=== PATIENT | female | born 1975 | race Caucasian/White ===

== ENCOUNTER 2017-04-19 20:22 | Emergency (ER) | payer OTHER ==
[2017-04-19 20:35] VITALS: BP 98/55; PULSE 65; TEMP 98.3; BMI 33.8
[2017-04-19] MEDS ORDERED: LORATADINE 10 MG TABLET PO ONE (22:43)
[2017-04-19] MEDS ORDERED: LORATADINE 10 MG TABLET ONE (22:44)
--- NOTE | 2017-04-19 22:59 | PDOC ---
History of Present Illness - General Chief Complaint: Ear Problem Stated Complaint: EAR INFECTION Time Seen by Provider: 04/19/17 22:10 Past History - Past Medical History Allergies/Adverse Reactions: Allergies Allergy/AdvReac Type Severity Reaction Status Date / Time acetaminophen [From Percocet] Allergy Hives Verified 04/19/17 20:34 oxycodone HCl [From Percocet] Allergy Hives Verified 04/19/17 20:34 tetracycline Allergy Hives Verified 04/19/17 20:34 SEAFOOD Allergy Rash Uncoded 04/19/17 20:34 Home Medications: Ambulatory Orders NK [No Known Home Medication] 04/19/17 Asthma: Yes Psychiatric Problems: Yes (ANXIETY) - Surgical History Cholecystectomy: No (GALLSTONES) - Psycho/Social/Smoking Cessation Hx Anxiety: Yes Suicidal Ideation: No Smoking History: Never smoked Have you smoked in the past 12 months: No Number of Cigarettes Smoked Daily: 2 Information on smoking cessation initiated: No Hx Alcohol Use: No Drug/Substance Use Hx: No Substance Use Type: None *Physical Exam - Vital Signs Last Vital Signs Temp Pulse Resp BP Pulse Ox 98.3 F 65 17 98/55 100 04/19/17 20:32 04/19/17 20:32 04/19/17 20:32 04/19/17 20:32 04/19/17 20:32 ED Treatment Course - Medications Given in the ED: ED Medications Discontinued Medications Generic Name Dose Route Start Last Admin Trade Name Juwan PRN Reason Stop Dose Admin Loratadine 10 mg 04/19/17 22:43 04/19/17 22:45 Claritin - PO 04/19/17 22:44 10 mg ONCE ONE Administration *DC/Admit/Observation/Transfer Diagnosis at time of Disposition: Otalgia of both ears - Discharge Dispostion Disposition: HOME Condition at time of disposition: Good Admit: No - Referrals Referrals: Buddy Alfaro MD [Staff Physician] - - Patient Instructions Printed Discharge Instructions: DI for Ear Pain-Adult Additional Instructions: You have ear pain, most likely due to seasonal allergies. Take Motrin as needed for pain. Take Claritin once daily to help with allergy symptoms. You were prescribed fluticisone nasal spray. Use two sprays in each nostril 2 times a day to help with the pain. Follow up with you primary care doctor. If your symptoms do not get better, follow up with ENT, Dr. Alfaro. Return to the ED if you have worsening pain, fevers, chills, lightheadedness, vertigo, or any changes in your symptoms - Post Discharge Activity Work/School Note: Back to Work
== END 2017-04-19 23:13 | disposition home or self-care (01) ==
LOC: JERFT 20:22 → SUPCPDRO 20:22 → JERFT 23:13
DX: H92.03 Otalgia, bilateral (principal); J45.909 Unspecified asthma, uncomplicated; F41.9 Anxiety disorder, unspecified
CPT/HCPCS: 99281-25

== ENCOUNTER 2017-07-02 15:23 | Emergency (ER) | payer OTHER ==
[2017-07-02 15:27] VITALS: BP 136/55; PULSE 95; TEMP 98.2; BMI 31.8
[2017-07-02] MEDS ORDERED: ALBUTEROL SO4 2.5/IPRATROPIUM 0.5 INH SOL 3 ML VIAL.NEB. NEB ONE ×4 (15:27→16:59)
--- NOTE | 2017-07-02 15:27 | PDOC ---
Rapid Medical Evaluation Time Seen by Provider: 07/02/17 15:24 Medical Evaluation: Allergies Allergy/AdvReac Type Severity Reaction Status Date / Time acetaminophen [From Percocet] Allergy Hives Verified 06/14/17 09:17 oxycodone HCl [From Percocet] Allergy Hives Verified 06/14/17 09:17 tetracycline Allergy Hives Verified 06/14/17 09:17 SEAFOOD Allergy Rash Uncoded 06/14/17 09:17 07/02/17 15:24 I have performed a brief in person evaluation of this patient. The patient presents with chief complaint of : cough short of breath ran out of inhaler , has URI symptoms, no intubations Pertinent PE findings: diminshed lung sounds bilaterally, exp wheeze noted, pt able to speak full sentences I have ordered the following: deena The patient will proceed to the ER for further evaluation.
--- NOTE | 2017-07-02 16:59 | PDOC ---
History of Present Illness - General Chief Complaint: Asthma Stated Complaint: SOB (ASTHMA) Time Seen by Provider: 07/02/17 15:24 History Source: Patient Exam Limitations: No Limitations - History of Present Illness Initial Comments: 07/02/17 16:41 Pt. is a 41 y/o female with PMH of asthma who presents to the ED stating that she feels short of breath and that she needs a refill of her albuterol inhaler. Pt. states that she has a cold and she feels that it is making her asthma worse. She has not taken any albuterol in the past day. States she has been hospitalized for her asthma, but never intubated. Admits to rhinorrhea, congestion, cough, wheezing, SOB. Denies fevers, chills, dyspnea on exertion, difficulty breathing, chest pain, n/v/d. Pt. received one duoneb in triage. Past History - Travel Traveled outside of the country in the last 30 days: No Close contact w/someone who was outside of country & ill: No - Past Medical History Allergies/Adverse Reactions: Allergies Allergy/AdvReac Type Severity Reaction Status Date / Time acetaminophen [From Percocet] Allergy Hives Verified 07/02/17 15:27 oxycodone HCl [From Percocet] Allergy Hives Verified 07/02/17 15:27 tetracycline Allergy Hives Verified 07/02/17 15:27 SEAFOOD Allergy Rash Uncoded 07/02/17 15:27 Home Medications: Ambulatory Orders Albuterol Sulfate Inhaler - [Ventolin HFA Inhaler -] 1 - 2 inh PO Q4H #1 inhaler 07/02/17 Albuterol Sulfate Inhaler - [Ventolin Hfa Inhaler -] 1 - 2 inh PO QID PRN Asthma: Yes COPD: No GI Disorders: Yes (GALLSTONES) Psychiatric Problems: Yes (ANXIETY) - Surgical History Cholecystectomy: Yes (GALLSTONES) - Suicide/Smoking/Psychosocial Hx Smoking History: Never smoked Have you smoked in the past 12 months: No Number of Cigarettes Smoked Daily: 2 Information on smoking cessation initiated: No Hx Alcohol Use: No Drug/Substance Use Hx: No Substance Use Type: Alcohol Review of Systems - Review of Systems Able to Perform ROS?: Yes Comments:: 07/02/17 17:14 CONSTITUTIONAL: Absent: fever, chills, diaphoresis, generalized weakness, malaise, loss of appetite HEENT: Present: rhinorrhea, nasal congestion Absent: throat pain, throat swelling, difficulty swallowing, mouth swelling, ear pain, eye pain, visual Changes CARDIOVASCULAR: Absent: chest pain, loss of consciousness, palpitations, irregular heart rate, peripheral edema RESPIRATORY: Present: cough, shortness of breath, wheezing Absent: dyspnea with exertion, orthopnea, stridor, hemoptysis GASTROINTESTINAL: Absent: abdominal pain, abdominal distension, nausea, vomiting, diarrhea, constipation, melena, hematochezia GENITOURINARY: Absent: dysuria, frequency, urgency, hesitancy, hematuria, flank pain, genital pain MUSCULOSKELETAL: Absent: myalgia, arthralgia, joint swelling SKIN: Absent: rash, itching, pallor HEMATOLOGIC/IMMUNOLOGIC: Absent: easy bleeding, easy bruising, lymphadenopathy, frequent infections ENDOCRINE: Absent: unexplained weight gain, unexplained weight loss, heat intolerance, cold intolerance NEUROLOGIC: Absent: headache, focal weakness or paresthesias, dizziness, unsteady gait, seizure, mental status changes, bladder or bowel incontinence PSYCHIATRIC: Absent: anxiety, depression, suicidal or homicidal ideation, hallucinations. Is the patient limited Swedish proficient: No *Physical Exam - Vital Signs Last Vital Signs Temp Pulse Resp BP Pulse Ox 98.2 F 95 H 19 136/55 100 07/02/17 15:25 07/02/17 15:25 07/02/17 15:25 07/02/17 15:25 07/02/17 15:25 - Physical Exam Comments: 07/02/17 17:15 GENERAL: Well developed, well nourished. Awake and alert. No acute distress. HEENT: Normocephalic, atraumatic. PERRLA, EOMI. No conjunctival pallor. Sclera are non- icteric. Moist mucous membranes. Oropharynx is clear. NECK: Supple. Full ROM. No JVD. Carotid pulses 2+ and symmetric, without bruits. No thyromegaly. No lymphadenopathy. CARDIOVASCULAR: Regular rate and rhythm. No murmurs, rubs, or gallops. Distal pulses are 2+ and symmetric. PULMONARY: No evidence of respiratory distress. Lungs with scattered wheezing. Fair aeration to the bases. No rales or rhonchi. ABDOMINAL: Soft. Non-tender. Non-distended. No rebound or guarding. No organomegaly. Normoactive bowel sounds. MUSCULOSKELETAL Normal range of motion at all joints. No bony deformities or tenderness. No CVA tenderness. EXTREMITIES: No cyanosis. No clubbing. No edema. No calf tenderness. SKIN: Warm and dry. Normal capillary refill. No rashes. No jaundice. NEUROLOGICAL: Alert, awake, appropriate. Cranial nerves 2-12 intact. No deficits to light touch and temperature in face, upper extremities and lower extremities. No motor deficits in the in face, upper extremities and lower extremities. Normoreflexic in the upper and lower extremities. Normal speech. Toes are down- going bilaterally. Gait is normal without ataxia. PSYCHIATRIC: Cooperative. Good eye contact. Appropriate mood and affect. ED Treatment Course - Medications Given in the ED: ED Medications Discontinued Medications Generic Name Dose Route Start Last Admin Trade Name Freq PRN Reason Stop Dose Admin Albuterol/Ipratropium 1 amp 07/02/17 15:27 07/02/17 15:32 Duoneb - NEB 07/02/17 15:28 1 amp ONCE ONE Administration Albuterol/Ipratropium 1 amp 07/02/17 16:29 07/02/17 16:34 Duoneb - NEB 07/02/17 16:30 1 amp ONCE ONE Administration Medical Decision Making - Medical Decision Making 07/02/17 17:16 Pt. is a 41 y/o F who presents to the ED for an asthma exacerbation and albuterol inhaler refill. Lung sounds with scattered wheezing after one duoneb. Will give two more and re-evaluate. New albuterol rx sent to her pharmacy. 07/02/17 17:54 Lung sounds clear on repeat exam. Will d/c home at this time with instructions to use inhaler every 4 hours while with viral symptoms. *DC/Admit/Observation/Transfer Diagnosis at time of Disposition: Asthma exacerbation Qualifiers: Asthma severity: mild Asthma persistence: intermittent Qualified Code(s): J45.21 - Mild intermittent asthma with (acute) exacerbation URI (upper respiratory infection) Qualifiers: URI type: unspecified URI Qualified Code(s): J06.9 - Acute upper respiratory infection, unspecified - Discharge Dispostion Disposition: HOME Condition at time of disposition: Good Admit: No - Prescriptions Prescriptions: Albuterol Sulfate Inhaler - [Ventolin HFA Inhaler -] 1 - 2 inh PO Q4H #1 inhaler - Referrals - Patient Instructions Printed Discharge Instructions: DI for Asthma -- Adult Additional Instructions: You had an asthma exacerbation. You were given a new prescription for albuterol. Please take it every 4 hours while you have the upper respiratory infection. Drink plenty of fluids. Follow up with your doctor this week. Return to the ED if you have worsening shortness of breath, fevers, difficulty breathing or have any changes in your symptoms. - Post Discharge Activity
== END 2017-07-02 17:41 | disposition home or self-care (01) ==
LOC: JERFT 15:23
PROC: 3E0F7GC Introduction of Other Therapeutic Substance into Respiratory Tract, Via Natural or Artificial Opening (ICD-10-PCS; principal; 2017-07-02)
PROC: 3E0F7GC Introduction of Other Therapeutic Substance into Respiratory Tract, Via Natural or Artificial Opening (ICD-10-PCS; 2017-07-02)
PROC: 3E0F7GC Introduction of Other Therapeutic Substance into Respiratory Tract, Via Natural or Artificial Opening (ICD-10-PCS; 2017-07-02)
DX: J45.21 Mild intermittent asthma with (acute) exacerbation (principal); J06.9 Acute upper respiratory infection, unspecified
CPT/HCPCS: 94640; 99281-25

== ENCOUNTER 2018-08-19 13:57 | Emergency (ER) | payer OTHER ==
[2018-08-19 14:26] VITALS: TEMP 98; BMI 26.5
--- NOTE | 2018-08-19 14:26 | PDOC ---
Rapid Medical Evaluation Chief Complaint: Nausea/Vomiting Medical Evaluation: Allergies Allergy/AdvReac Type Severity Reaction Status Date / Time acetaminophen [From Percocet] Allergy Hives Verified 03/20/18 17:46 oxycodone HCl [From Percocet] Allergy Hives Verified 03/20/18 17:46 tetracycline Allergy Hives Verified 03/20/18 17:46 SEAFOOD Allergy Rash Uncoded 03/20/18 17:46 08/19/18 14:22 I have performed a brief in-person evaluation of this patient. The patient presents with a chief complaint of:vomiting x 2 days= after binge drinking , stopped last month but smokes marijuana daily. Pertinent physical exam findings: pale, appears uncomfortable I have ordered the following: Influenza , ua, ucg The patient will proceed to the ED for further evaluation. 08/19/18 14:24 Discharge Disposition - Diagnosis Fever and chills - Referrals - Patient Instructions - Post Discharge Activity
--- NOTE | 2018-08-19 15:30 | PDOC ---
History of Present Illness - General Chief Complaint: Nausea/Vomiting Stated Complaint: Nausea/Vomiting Time Seen by Provider: 08/19/18 15:21 History Source: Patient - History of Present Illness Timing/Duration: reports: other Quality: reports: severe Past History - Past Medical History Allergies/Adverse Reactions: Allergies Allergy/AdvReac Type Severity Reaction Status Date / Time acetaminophen [From Percocet] Allergy Hives Verified 08/19/18 14:26 oxycodone HCl [From Percocet] Allergy Hives Verified 08/19/18 14:26 tetracycline Allergy Hives Verified 08/19/18 14:26 SEAFOOD Allergy Rash Uncoded 08/19/18 14:26 Home Medications: Ambulatory Orders Albuterol Sulfate Inhaler - [Ventolin HFA Inhaler -] 1 - 2 inh PO Q4H #1 inhaler 07/02/17 Ibuprofen 800 mg PO TID #30 tablet 03/20/18 Tramadol HCl [Ultram] 50 mg PO TID #20 tablet MDD 3 03/20/18 Metoclopramide HCl [Reglan] 10 mg PO Q8H #15 tablet 08/19/18 Asthma: Yes COPD: No GI Disorders: Yes (GALLSTONES) Psychiatric Problems: Yes (ANXIETY/ depression) - Surgical History Cholecystectomy: Yes (GALLSTONES) - Reproductive History (#): 2 Para: 2 Cervical CA: No Dysfunctional Uterine Bleeding: No Ectopic : No Endometrial CA: No Polycystic Ovaries: No Therapeutic (s) & number: No Tubal Ligation: No - Immunization History Immunization Up to Date: Yes - Suicide/Smoking/Psychosocial Hx Smoking History: Never smoked Have you smoked in the past 12 months: No Number of Cigarettes Smoked Daily: 2 Information on smoking cessation initiated: No Hx Alcohol Use: Yes (lot during the weekend.) Drug/Substance Use Hx: Yes (marijuana) Substance Use Type: Alcohol Review of Systems - Review of Systems Constitutional: Yes: Weakness. No: Chills, Fever ABD/GI: Yes: Nausea, Vomiting. No: Diarrhea, Abdominal cramping : No: Dysuria, Frequency, Flank Pain, Hematuria *Physical Exam - Vital Signs Last Vital Signs Temp Pulse Resp BP Pulse Ox 98.0 F 93 H 16 99/60 100 08/19/18 14:24 08/19/18 14:24 08/19/18 14:24 08/19/18 14:24 08/19/18 14:24 - Physical Exam General Appearance: Yes: Appropriately Dressed, Moderate Distress HEENT: positive: Normal Voice Neck: positive: Supple Respiratory/Chest: negative: Respiratory Distress Gastrointestinal/Abdominal: positive: Soft Musculoskeletal: negative: CVA Tenderness Integumentary: positive: Dry, Warm Neurologic: positive: Fully Oriented, Alert, Normal Mood/Affect Moderate Sedation - Procedure Monitoring Vital Signs: Procedure Monitoring Vital Signs Temperature 98.0 F 08/19/18 14:24 Pulse Rate 93 H 08/19/18 14:24 Respiratory Rate 16 08/19/18 14:24 Blood Pressure 99/60 08/19/18 14:24 O2 Sat by Pulse Oximetry (%) 100 08/19/18 14:24 ED Treatment Course - LABORATORY CBC & Chemistry Diagram: 08/19/18 15:59 08/19/18 15:59 Medical Decision Making - Medical Decision Making 08/19/18 15:28 42 yo F, possible ETOH abuse, marijuana use daily, here with intractable n/v 4 days. Unable to tolerate po. Denies abdominal pain, change in bowel movements , hematochezia, BRBPR, melena, fever or chills. No dysuria. Patient states she drinks socially but sometimes when she drinks, she drinks "too much" and binge drinks. States last time she drank was a month ago and stopped drinking because of nausea, vomiting. Reports that she has not drank since, but continues to smoke marijuana daily. see exam N/V Possible cyclical n/v 2/2 cannibus use vs gastritis vs pancreatitis given hx -IVF -zofran -labs -reassess 08/19/18 17:25 Pt reports feeling significantly better after Reglan and IV fluids and appears well at this time. Was able to tolerate po here. Will dc with appropriate instructions and reglan as needed for pain. Reasons to return discussed with patient, otherwise to follow-up with her PMD *DC/Admit/Observation/Transfer Diagnosis at time of Disposition: Nausea and vomiting Qualifiers: Vomiting type: unspecified Vomiting Intractability: intractable Qualified Code( s): R11.2 - Nausea with vomiting, unspecified - Discharge Dispostion Disposition: HOME Condition at time of disposition: Improved - Prescriptions Prescriptions: Metoclopramide HCl [Reglan] 10 mg PO Q8H #15 tablet - Referrals - Patient Instructions Printed Discharge Instructions: DI for Vomiting -- Adult Additional Instructions: The cause of your symptoms might be frequent marijuana use. Consider refraining from further use. Also limit alcohol intake Take Reglan as needed for nausea, vomiting and maintain adequate hydration. If symptoms persist, return to ED, otherwise follow-up with your PMD - Post Discharge Activity Forms/Work/School Notes: Back to Work
[2018-08-19] MEDS ORDERED: SODIUM CHLORIDE 1,000 ML IV STA (15:31)
[2018-08-19] MEDS ORDERED: METOCLOPRAMIDE HCL INJECTION 10 MG/2 ML VIAL IVPB ONE (15:31)
[2018-08-19 15:35] LABS: URINE APPEARANCE CLEAR; URINE BILIRUBIN NEGATIVE (<2.0 mg/dL); URINE COLOR LTYELLOW; URINE GLUCOSE (UA) NEGATIVE (NEGATIVE); URINE KETONE TRACE (NEGATIVE); URINE LEUK ESTERASE NEGATIVE (NEGATIVE); URINE NITRITE NEGATIVE (NEGATIVE); URINE PROTEIN NEGATIVE (NEGATIVE); URINE UROBILINOGEN NEGATIVE mg/dL (0.2-1.0)
[2018-08-19] MEDS ORDERED: ONDANSETRON 4 MG/2 ML VIAL IVPUSH ONE (15:39)
[2018-08-19] MEDS ORDERED: ONDANSETRON 4 MG/2 ML VIAL ONE (16:03)
[2018-08-19] MEDS ORDERED: METOCLOPRAMIDE HCL INJECTION 10 MG/2 ML VIAL ONE (16:12)
[2018-08-19 16:42] LABS: BASO % 1.1 % (0-2.0); HEMATOCRIT 41.8 % (32.4-45.2); HEMOGLOBIN 14.4 GM/dL (10.7-15.3); LYMPH % 26.8 % (8-40); MCHC 34.4 g/dl (32.0-36.0); MEAN CELL VOLUME 84.4 fl (80-96); MEAN PLT VOLUME 8.4 fl (7.5-11.1); MONO % 4.1 % (3.8-10.2); PLATELET COUNT 437 K/MM3 (134-434); RBC 4.96 M/mm3 (3.60-5.2); RDW 13.4 % (11.6-15.6); WHITE BLOOD COUNT 12.1 K/mm3 (4.0-10.0)
[2018-08-19 16:56] LABS: ALBUMIN 3.9 g/dl (3.4-5.0); ALK PHOS 77 U/L (45-117); ANION GAP 10 MMOL/L (8-16); BILIRUBIN,TOTAL 0.6 mg/dL (0.2-1); BLOOD UREA NITROGEN 10 mg/dL (7-18); CALCIUM 9.6 mg/dL (8.5-10.1); CHLORIDE 102 mmol/L (98-107); CO2 21 mmol/L (21-32); CREATININE 0.7 mg/dL (0.55-1.3); GLUCOSE,RANDOM 87 mg/dL (74-106); LIPASE 112 U/L (73-393); POTASSIUM 3.9 mmol/L (3.5-5.1); SGOT/AST 10 U/L (15-37); SGPT/ALT 19 U/L (13-61); SODIUM 133 mmol/L (136-145)
[2018-08-19 18:12] VITALS: BP 97/49; PULSE 75
[2018-08-20 02:56] LABS: COCAINE, UR NEGATIVE ng/ml (CUTOFF=300); METHADONE, UR NEGATIVE ng/ml (CUTOFF=300); OPIATES, URI NEGATIVE ng/ml (CUTOFF=300); PHENCYCLIDINE,URINE NEGATIVE ng/ml (CUTOFF=25); URINE AMPHETAMINES NEGATIVE ng/ml (CUTOFF=500); URINE BARBITURATES NEGATIVE ng/ml (CUTOFF=200); URINE BENZODIAZEPINES NEGATIVE ng/ml (CUTOFF=200)
== END 2018-08-19 18:11 | disposition home or self-care (01) ==
LOC: JER 13:57
PROC: 3E0337Z Introduction of Electrolytic and Water Balance Substance into Peripheral Vein, Percutaneous Approach (ICD-10-PCS; principal; 2018-08-19)
PROC: 3E033GC Introduction of Other Therapeutic Substance into Peripheral Vein, Percutaneous Approach (ICD-10-PCS; 2018-08-19)
PROC: 3E033GC Introduction of Other Therapeutic Substance into Peripheral Vein, Percutaneous Approach (ICD-10-PCS; 2018-08-19)
DX: R11.2 Nausea with vomiting, unspecified (principal); F10.10 Alcohol abuse, uncomplicated; F12.10 Cannabis abuse, uncomplicated
CPT/HCPCS: 36415; 80053; 80307; 81003; 83690; 84703; 85025; 87804; 96361; 96374; 96375; 99282-25; J7030

== ENCOUNTER 2019-02-10 15:48 | Emergency (ER) | payer OTHER ==
[2019-02-10 16:06] VITALS: BMI 26.5
--- NOTE | 2019-02-10 16:06 | PDOC ---
Rapid Medical Evaluation Time Seen by Provider: 02/10/19 16:03 Medical Evaluation: Allergies Allergy/AdvReac Type Severity Reaction Status Date / Time acetaminophen [From Percocet] Allergy Hives Verified 08/19/18 14:26 oxycodone HCl [From Percocet] Allergy Hives Verified 08/19/18 14:26 tetracycline Allergy Hives Verified 08/19/18 14:26 SEAFOOD Allergy Rash Uncoded 08/19/18 14:26 02/10/19 16:03 This patient had a brief in-person evaluation by me. cc: intermittent cramping +spotting, breast tenderness and nausea this week reports lmp 01/31, that was light PE: NAD unlabored breathing +bowel sounds non tender abdomen Orders: urine test, u/a This patient will proceed to Ed for further evaluation Discharge Disposition - Diagnosis Abdominal cramping - Referrals - Patient Instructions - Post Discharge Activity
[2019-02-10 17:33] LABS: PH,URINE 6.5 (5.0-8.0); URINE APPEARANCE CLEAR; URINE BILIRUBIN NEGATIVE (NEGATIVE); URINE COLOR YELLOW; URINE GLUCOSE (UA) NEGATIVE (NEGATIVE); URINE KETONE NEGATIVE (NEGATIVE); URINE LEUK ESTERASE NEGATIVE (NEGATIVE); URINE NITRITE NEGATIVE (NEGATIVE); URINE PROTEIN NEGATIVE (NEGATIVE); URINE UROBILINOGEN 0.2 mg/dL (0.2-1.0)
[2019-02-10 17:36] LABS: HCG,QUALITATIVE URINE Negative
[2019-02-10] MEDS ORDERED: ONDANSETRON 4 MG/2 ML VIAL IVPUSH ONE (18:39)
[2019-02-10] MEDS ORDERED: SODIUM CHLORIDE 0.9% 500 ML INFUS.BAG IV ONE (18:39)
--- NOTE | 2019-02-10 18:41 | PDOC ---
History of Present Illness - General Chief Complaint: Pain Stated Complaint: ABD PAIN Time Seen by Provider: 02/10/19 16:03 History Source: Patient Exam Limitations: No Limitations - History of Present Illness Initial Comments: 02/10/19 18:34 43 yo F LMP 01/31 p/w abdominal cramping (suprapubic, R>L) and vaginal spotting/bleeding since previous night. Vaginal spotting last pm and bleeding this am - has used 4 tampons. Endorses mild Nausea. Denies headache, lightheadedness, chest pain, SOB, vomiting, diarrhea, and dysuria. She believes her last pap smear was last year. h/o fibroids - states this feels different. PMH: asthma Allergy to Vancomycin and Percocet [facility] INSTALLER "across the street" Prior cholecystectomy Past History - Past Medical History Allergies/Adverse Reactions: Allergies Allergy/AdvReac Type Severity Reaction Status Date / Time acetaminophen [From Percocet] Allergy Hives Verified 02/10/19 16:06 oxycodone HCl [From Percocet] Allergy Hives Verified 02/10/19 16:06 tetracycline Allergy Hives Verified 02/10/19 16:06 vancomycin Allergy Verified 02/10/19 16:07 SEAFOOD Allergy Rash Uncoded 02/10/19 16:06 Home Medications: Ambulatory Orders Albuterol Sulfate Inhaler - [Ventolin HFA Inhaler -] 1 - 2 inh PO Q4H #1 inhaler 07/02/17 Ibuprofen 800 mg PO TID #30 tablet 03/20/18 Tramadol HCl [Ultram] 50 mg PO TID #20 tablet MDD 3 03/20/18 Metoclopramide HCl [Reglan] 10 mg PO Q8H #15 tablet 08/19/18 Asthma: Yes COPD: No GI Disorders: Yes (GALLSTONES) Psychiatric Problems: Yes (ANXIETY/ depression) - Surgical History Cholecystectomy: Yes (GALLSTONES) - Reproductive History (#): 2 Para: 2 Cervical CA: No Dysfunctional Uterine Bleeding: No Ectopic : No Endometrial CA: No Polycystic Ovaries: No Therapeutic (s) & number: No Tubal Ligation: No - Immunization History Immunization Up to Date: Yes - Suicide/Smoking/Psychosocial Hx Smoking History: Never smoked Have you smoked in the past 12 months: No Number of Cigarettes Smoked Daily: 2 Hx Alcohol Use: No Drug/Substance Use Hx: No Substance Use Type: Alcohol Review of Systems - Review of Systems Able to Perform ROS?: Yes Is the patient limited Irish proficient: No Constitutional: No: Fever, Loss of Appetite Respiratory: No: Shortness of Breath Cardiac (ROS): No: Symptoms Reported, See HPI, Chest Pain, Edema, Irregular Heart Rate, Lightheadedness, Palpitations, Syncope, Chest Tightness, Other ABD/GI: Yes: Nausea (mild), Abdominal cramping. No: Diarrhea, Vomiting, Indigestion : No: Dysuria *Physical Exam - Vital Signs Last Vital Signs Temp Pulse Resp BP Pulse Ox 98.2 F 74 18 144/85 100 02/10/19 16:04 02/10/19 16:04 02/10/19 16:04 02/10/19 16:04 02/10/19 16:04 - Physical Exam Comments: 02/10/19 18:42 GEN: SITTING IN CHAIR, NAD HEENT: NC/AT, EOMI, PERRLA CV: S1/S2, RRR, NO M/R/G LUNG: CTAB, NO WHEEZES/RALES GI: SOFT, ND. + TTP SUPRAPUBIC AND RLQ. NO GUARDING, NO REBOUND. PELVIC: speculum exam demonstrated closed cervical os without active bleeding but there was presence of blood at the cervix. No cervical motion tenderness, no adnexal tenderness. ED Treatment Course - LABORATORY CBC & Chemistry Diagram: 02/10/19 19:06 02/10/19 19:06 - ADDITIONAL ORDERS Additional order review: Laboratory Results 02/10/19 17:09 Urine Color Yellow Urine Appearance Clear Urine pH 6.5 Ur Specific [place] 1.017 Urine Protein Negative Urine Glucose (UA) Negative Urine Ketones Negative Urine Blood Negative Urine Nitrite Negative Urine Bilirubin Negative Urine Urobilinogen 0.2 Ur Leukocyte Esterase Negative Urine HCG, Qual Negative Medical Decision Making - Medical Decision Making 02/10/19 18:44 43 yo F LMP 6/28 p/w abdominal cramping and vaginal bleeding for 1 day. Exam significant for suprapubic and RLQ TTP. Urine test is negative. DDx Fibroid, abnormal uterine bleeding, ovarian cyst. Unlikely IUP, ectopic, UTI , or appendicitis Abdominal pain and vaginal bleeding - UPT neg - UA neg - CBC, CMP - Pelvic exam - transvaginal US - IV, fluids, zofran - NPO 02/10/19 20:53 - US report reviewed Dispo: home with OB f/u *DC/Admit/Observation/Transfer Diagnosis at time of Disposition: Abdominal cramping, Dysfunctional uterine bleeding - Discharge Dispostion Disposition: HOME Condition at time of disposition: Good Decision to Admit order: No - Referrals - Patient Instructions Printed Discharge Instructions: DI for Vaginal Bleeding Additional Instructions: You were examined in the Emergency Department for vaginal bleeding and abdominal pain. The ultrasound and lab work show no emergent abnormalities. Please follow up with your DUCT INSTALLER within the next 3 days. Return to the ED if you have worsening bleeding, lightheadedness, dizziness, chest pain, shortness of breath, worsening abdominal pain, or faint. - Post Discharge Activity
[2019-02-10] MEDS ORDERED: ONDANSETRON 4 MG/2 ML VIAL ONE (19:10)
[2019-02-10 20:17] LABS: BILIRUBIN,TOTAL 0.2 mg/dL (0.2-1); CALCIUM 9.1 mg/dL (8.5-10.1); CREATININE 0.7 mg/dL (0.55-1.3); POTASSIUM 4.3 mmol/L (3.5-5.1); TOT PROT 7.9 g/dl (6.4-8.2)
[2019-02-10 20:41] LABS: BASO % 0.4 % (0-2.0); EOS % 0.8 % (0-4.5); HEMOGLOBIN 13.2 GM/dL (10.7-15.3); LYMPH % 38.2 % (8-40); MCH 29.2 pg (25.7-33.7); MEAN CELL VOLUME 88.3 fl (80-96); MEAN PLT VOLUME 8.8 fl (7.5-11.1); MONO % 5.2 % (3.8-10.2); NEUT % 55.4 % (42.8-82.8); PLATELET COUNT 359 K/MM3 (134-434); RBC 4.52 M/mm3 (3.60-5.2); WHITE BLOOD COUNT 9.2 K/mm3 (4.0-10.0)
--- NOTE | 2019-02-10 21:44 | PDOC ---
Documentation entered by Estephanie Funez SCRIBE, acting as scribe for Emerita Saavedra DO. Emerita Saavedra DO: This documentation has been prepared by the Dee Dee arechiga Brenda, SCRIBE, under my direction and personally reviewed by me in its entirety. I confirm that the documentation accurately reflects all work , treatment, procedures, and medical decision making performed by me. Attending Attestation - Resident Resident Name: Ortega Carmona - ED Attending Attestation I have performed the following: I have examined & evaluated the patient, The case was reviewed & discussed with the resident, I agree w/resident's findings & plan, Exceptions are as noted - HPI HPI: 02/10/19 20:42 The patient is a 43 year old female () , with a significant PMH of depression,anxiety, asthma and fibroid, who presents to the emergency department with 1 day of vaginal bleeding. The patient reports spotting started last night and turned into active bleeding this morning. The patient reports having went through 4 tampons since last night. She also notes mild intermittent nausea along with abdominal pain, that feels like there is a band around her waist. LMP was on January 31, reported to be willower than usual. The patient denies chest pain, shortness of breath, headache and dizziness. Denies fever, chills, nausea,diarrhea and constipation.Denies dysuria, frequency , urgency. Allergies:Vancomycin and Percocet NKA Past surgical history: Cholecystectomy Social history: Non smoker - Physicial Exam PE: 02/10/19 19:50 GENERAL: Awake, in no acute distress HEAD: No signs of trauma EYES: ENT:clear without exudates. Moist mucosa NECK: Normal ROM, LUNGS:. Normal work of breathing. HEART: Regular rate and rhythm, ABDOMEN: Soft, nondistended CHEST WALL: BACK: No midline tenderness. EXTREMITIES:. No erythema, or tenderness NEUROLOGICAL: Alert, SKIN: Warm, Dry - Medical Decision Making 02/10/19 21:43 43-year-old female with self-reported history of fibroids now with vaginal bleeding between periods and pelvic cramping Ultrasound is within normal limits Laboratory unremarkable There are no secondary to signs or symptoms to suggest gastrointestinal pathology Patient will be discharged home to follow up with her [employer] physician
[2019-02-10 22:17] VITALS: BP 118/82; PULSE 89; TEMP 99.1
== END 2019-02-10 22:17 | disposition home or self-care (01) ==
LOC: JER 15:48
PROC: 3E033GC Introduction of Other Therapeutic Substance into Peripheral Vein, Percutaneous Approach (ICD-10-PCS; principal; 2019-02-10)
PROC: 3E0337Z Introduction of Electrolytic and Water Balance Substance into Peripheral Vein, Percutaneous Approach (ICD-10-PCS; 2019-02-10)
DX: N93.8 Other specified abnormal uterine and vaginal bleeding (principal)
CPT/HCPCS: 36415; 76830-TC; 80053; 81003; 84703; 85025; 87086; 96374; 99283-25

== ENCOUNTER 2019-02-20 13:46 | Emergency (ER) | payer OTHER ==
[2019-02-20 13:54] VITALS: BP 135/100; PULSE 74; TEMP 98.1; BMI 25.6
[2019-02-20] MEDS ORDERED: ONDANSETRON *ODT* 4 MG TABLET SL ONE (13:54)
--- NOTE | 2019-02-20 13:55 | PDOC ---
Rapid Medical Evaluation Chief Complaint: Nausea/Vomiting Time Seen by Provider: 02/20/19 13:49 Medical Evaluation: Allergies Allergy/AdvReac Type Severity Reaction Status Date / Time acetaminophen [From Percocet] Allergy Hives Verified 02/10/19 16:06 oxycodone HCl [From Percocet] Allergy Hives Verified 02/10/19 16:06 tetracycline Allergy Hives Verified 02/10/19 16:06 vancomycin Allergy Verified 02/10/19 16:07 SEAFOOD Allergy Rash Uncoded 02/10/19 16:06 02/20/19 13:49 I have performed a brief in-person evaluation of this patient. The patient presents with a chief complaint of: nausea and vomiting since AM , woke up and vomiting TNTC Pertinent physical exam findings: + vomiting in waiting room I have ordered the following: labs/zofran/ The patient will proceed to the ED for further evaluation. 02/20/19 13:56 02/20/19 13:57 Discharge Disposition - Diagnosis Nausea and vomiting Qualifiers: Vomiting type: unspecified Vomiting Intractability: unspecified Qualified Code( s): R11.2 - Nausea with vomiting, unspecified - Referrals - Patient Instructions - Post Discharge Activity
--- NOTE | 2019-02-20 14:28 | PDOC ---
History of Present Illness - General Chief Complaint: Nausea/Vomiting Stated Complaint: BODY CRAMPS Time Seen by Provider: 02/20/19 13:49 - History of Present Illness Initial Comments: 02/20/19 14:27 [id number] Cholecystectomy years ago in [place], asthma, presents with nausea/ vomiting since this AM. Complains of mult episodes, unable to tolerate liquids, last vomited in ED. Watery diarrhea. Burning abd pain. No dysuria, no recent abx, no recent travel, no sick contacts @ home. Per prior notes pt smokes marijuana daily ,was seen for similar complaint in Aug 2018. LMP January 31. 02/20/19 14:32 Past History - Past Medical History Allergies/Adverse Reactions: Allergies Allergy/AdvReac Type Severity Reaction Status Date / Time acetaminophen [From Percocet] Allergy Hives Verified 02/20/19 13:56 oxycodone HCl [From Percocet] Allergy Hives Verified 02/20/19 13:56 tetracycline Allergy Hives Verified 02/20/19 13:56 vancomycin Allergy Verified 02/20/19 13:56 SEAFOOD Allergy Rash Uncoded 02/20/19 13:56 Home Medications: Ambulatory Orders Albuterol Sulfate Inhaler - [Ventolin HFA Inhaler -] 1 - 2 inh PO Q4H #1 inhaler 07/02/17 Ibuprofen 800 mg PO TID #30 tablet 03/20/18 Tramadol HCl [Ultram] 50 mg PO TID #20 tablet MDD 3 03/20/18 Metoclopramide HCl [Reglan] 10 mg PO Q8H #15 tablet 08/19/18 Famotidine [Pepcid] 20 mg PO DAILY #30 tablet 02/20/19 Asthma: Yes COPD: No GI Disorders: Yes (GALLSTONES) Psychiatric Problems: Yes (ANXIETY/ depression) - Surgical History Cholecystectomy: Yes (GALLSTONES) - Reproductive History (#): 2 Para: 2 Cervical CA: No Dysfunctional Uterine Bleeding: No Ectopic : No Endometrial CA: No Polycystic Ovaries: No Therapeutic (s) & number: No Tubal Ligation: No - Immunization History Immunization Up to Date: Yes - Suicide/Smoking/Psychosocial Hx Smoking History: Current every day smoker Have you smoked in the past 12 months: Yes Number of Cigarettes Smoked Daily: 3 Information on smoking cessation initiated: No Hx Alcohol Use: No Drug/Substance Use Hx: No Substance Use Type: Alcohol Review of Systems - Review of Systems Constitutional: No: Chills, Fever ABD/GI: Yes: Diarrhea, Nausea, Poor Fluid Intake, Vomiting : No: Burning, Dysuria, Frequency *Physical Exam - Vital Signs Last Vital Signs Temp Pulse Resp BP Pulse Ox 98.1 F 74 18 135/100 100 02/20/19 13:52 02/20/19 13:52 02/20/19 13:52 02/20/19 13:52 02/20/19 13:52 - Physical Exam Comments: 02/20/19 14:34 Gen: lying on exam table appear uncomfortable vomiting intermittently HEENT: mmm Lungs : CTAB CV: rrr s1 s2 no mrg Abd: Soft, TTP in epigastrium, non distended, no rebound or guarding BSUS shows no visible gall bladder, no RUQ tenderness 02/20/19 14:55 General Appearance: Yes: Mild Distress HEENT: positive: LAURO, Pharynx Normal Respiratory/Chest: positive: Lungs Clear. negative: Labored Respiration Cardiovascular: positive: Regular Rhythm ED Treatment Course - LABORATORY CBC & Chemistry Diagram: 02/20/19 14:30 02/20/19 14:30 Medical Decision Making - Medical Decision Making 02/20/19 14:55 Given n/v with vomiting in pt s/p cholecystectomy, tenderness in epigastrium , likely gastroenteritis (cyclical vomiting syndrome 2/2 cannabis? ) , less likely retained stone. Pt appears symptomatically improved with zofran, will dose w/ pepcid and fluids. 02/20/19 15:51 Labs wnl , no anion gap with normal bilirubin, AST/ALT, WBC slightly elevated at 13.6 likely 2/2 vomiting patient vomited again after PO trial with water remains soft non tender non distended will dose with reglan and give 1L IVNS and reassess - consider imaging if fails PO trial after meds. 02/20/19 16:52 PO trial successful, pt well appearing, non tender with normal vitals. Encourage PO hydration at home Return precautions given. *DC/Admit/Observation/Transfer Diagnosis at time of Disposition: Gastroenteritis Nausea and vomiting Qualifiers: Vomiting type: unspecified Vomiting Intractability: non-intractable Qualified Code(s): R11.2 - Nausea with vomiting, unspecified - Discharge Dispostion Disposition: HOME Condition at time of disposition: Good Decision to Admit order: No - Referrals - Patient Instructions Additional Instructions: Drink plenty of fluids. Avoid greasy or fatty foods. Take pepcid as prescribed. Return to the ED if you experience worsening abdominal pain or are unable to tolerate any fluids without vomiting. Follow up with your primary care physician. - Post Discharge Activity
[2019-02-20 14:42] LABS: BASO % 0.7 % (0-2.0); HEMATOCRIT 40.1 % (32.4-45.2); HEMOGLOBIN 13.8 GM/dL (10.7-15.3); LYMPH % 14.6 % (8-40); MCH 29.5 pg (25.7-33.7); MCHC 34.4 g/dl (32.0-36.0); MEAN CELL VOLUME 85.8 fl (80-96); MEAN PLT VOLUME 7.9 fl (7.5-11.1); MONO % 2.5 % (3.8-10.2); NEUT % 82.2 % (42.8-82.8); RBC 4.67 M/mm3 (3.60-5.2); RDW 13.2 % (11.6-15.6); WHITE BLOOD COUNT 13.6 K/mm3 (4.0-10.0)
[2019-02-20] MEDS ORDERED: ONDANSETRON 4 MG/2 ML VIAL ONE (14:48)
[2019-02-20 14:51] LABS: PLATELET COUNT 396 K/MM3 (134-434)
[2019-02-20] MEDS ORDERED: SODIUM CHLORIDE 0.9% 500 ML INFUS.BAG IV ONE (14:53)
[2019-02-20] MEDS ORDERED: FAMOTIDINE 20 MG/50 ML IVPB 20 MG/50 ML MG IVPB ONE ×2 (14:53→15:10)
[2019-02-20] MEDS ORDERED: ONDANSETRON *ODT* 4 MG TABLET ONE (15:10)
[2019-02-20 15:22] LABS: ALBUMIN 4.2 g/dl (3.4-5.0); ALK PHOS 75 U/L (45-117); ANION GAP 12 MMOL/L (8-16); BILIRUBIN,TOTAL 0.6 mg/dL (0.2-1); CALCIUM 9.7 mg/dL (8.5-10.1); CHLORIDE 108 mmol/L (98-107); CO2 20 mmol/L (21-32); CREATININE 0.8 mg/dL (0.55-1.3); GLUCOSE,RANDOM 111 mg/dL (74-106); POTASSIUM 3.6 mmol/L (3.5-5.1); SGOT/AST 11 U/L (15-37); SGPT/ALT 23 U/L (13-61); SODIUM 140 mmol/L (136-145); TOT PROT 8.5 g/dl (6.4-8.2)
[2019-02-20] MEDS ORDERED: SODIUM CHLORIDE 1,000 ML IV STA (15:50)
[2019-02-20] MEDS ORDERED: METOCLOPRAMIDE HCL INJECTION 10 MG/2 ML VIAL IVPUSH ONE (15:50)
[2019-02-20] MEDS ORDERED: METOCLOPRAMIDE HCL INJECTION 10 MG/2 ML VIAL ONE (15:56)
[2019-02-20 16:41] LABS: PH,URINE >= 9.0 (5.0-8.0); URINE APPEARANCE CLEAR; URINE BILIRUBIN NEGATIVE (NEGATIVE); URINE COLOR YELLOW; URINE GLUCOSE (UA) NEGATIVE (NEGATIVE); URINE KETONE 2+ (NEGATIVE); URINE LEUK ESTERASE NEGATIVE (NEGATIVE); URINE NITRITE NEGATIVE (NEGATIVE); URINE PROTEIN TRACE (NEGATIVE); URINE UROBILINOGEN 0.2 mg/dL (0.2-1.0)
[2019-02-20 16:51] LABS: HCG,QUALITATIVE URINE Negative
== END 2019-02-20 17:05 | disposition home or self-care (01) ==
LOC: JER 13:46
PROC: 3E0337Z Introduction of Electrolytic and Water Balance Substance into Peripheral Vein, Percutaneous Approach (ICD-10-PCS; principal; 2019-02-20)
PROC: 3E033GC Introduction of Other Therapeutic Substance into Peripheral Vein, Percutaneous Approach (ICD-10-PCS; 2019-02-20)
PROC: 3E033GC Introduction of Other Therapeutic Substance into Peripheral Vein, Percutaneous Approach (ICD-10-PCS; 2019-02-20)
DX: K52.9 Noninfective gastroenteritis and colitis, unspecified (principal)
CPT/HCPCS: 36415; 80053; 81003; 82150; 83690; 84702; 84703; 85025; 99283-25; J7030; Q0162

== ENCOUNTER 2019-07-06 08:44 | Emergency (ER) | payer OTHER ==
[2019-07-06 09:01] VITALS: BP 114/68; PULSE 74; TEMP 98.4; BMI 29.2
[2019-07-06] MEDS ORDERED: KETOROLAC TROMETHAMINE 60 MG/2 ML VIAL IM ONE (09:14)
--- NOTE | 2019-07-06 09:17 | PDOC ---
History of Present Illness - General Chief Complaint: Pain Stated Complaint: RT KNEE SWELLING Time Seen by Provider: 07/06/19 09:07 History Source: Patient Exam Limitations: No Limitations - History of Present Illness Is this a multiple visit Asthma Patient?: No Associated Symptoms: denies: fever/chills Past History - Travel Traveled outside of the country in the last 30 days: No Close contact w/someone who was outside of country & ill: No - Past Medical History Allergies/Adverse Reactions: Allergies Allergy/AdvReac Type Severity Reaction Status Date / Time acetaminophen [From Percocet] Allergy Hives Verified 07/06/19 08:57 oxycodone HCl [From Percocet] Allergy Hives Verified 07/06/19 08:57 tetracycline Allergy Hives Verified 07/06/19 08:57 vancomycin Allergy Verified 07/06/19 08:57 SEAFOOD Allergy Rash Uncoded 07/06/19 08:57 Home Medications: Ambulatory Orders Albuterol Sulfate Inhaler - [Ventolin HFA Inhaler -] 1 - 2 inh PO Q4H #1 inhaler 07/02/17 Ibuprofen 800 mg PO TID #30 tablet 03/20/18 Tramadol HCl [Ultram] 50 mg PO TID #20 tablet MDD 3 03/20/18 Metoclopramide HCl [Reglan] 10 mg PO Q8H #15 tablet 08/19/18 Famotidine [Pepcid] 20 mg PO DAILY #30 tablet 02/20/19 Ibuprofen 800 mg PO ACDIN 7 Days #30 tablet 07/06/19 Asthma: Yes COPD: No GI Disorders: Yes (GALLSTONES) Psychiatric Problems: Yes (ANXIETY/ depression) - Surgical History Cholecystectomy: Yes (GALLSTONES) - Reproductive History (#): 2 Para: 2 Cervical CA: No Dysfunctional Uterine Bleeding: No Ectopic : No Endometrial CA: No Polycystic Ovaries: No Therapeutic (s) & number: No Tubal Ligation: No - Immunization History Immunization Up to Date: Yes - Psycho Social/Smoking Cessation Hx Smoking History: Never smoked Have you smoked in the past 12 months: Yes Number of Cigarettes Smoked Daily: 3 Hx Alcohol Use: No Drug/Substance Use Hx: No Substance Use Type: Alcohol Review of Systems - Review of Systems Able to Perform ROS?: Yes Is the patient limited Portuguese proficient: No Constitutional: No: Chills, Fever Musculoskeletal: Yes: Joint Pain, Joint Swelling (R knee). 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 Patient denies any trauma. She has never been evaluated for knee pain. She presents to the emergency room with worsening pain since yesterday. Admits to some swelling and inability to properly walk. xray neg knee zach wrap f/u ortho as out patient Discharge - Discharge Information Problems reviewed: Yes Clinical Impression/Diagnosis: Knee effusion, right Condition: Stable Disposition: HOME - Admission No - Additional Discharge Information Prescriptions: Ibuprofen 800 mg PO ACDIN 7 Days #30 tablet Prescription Drug Monitoring Program (I-STOP) results: I-STOP not reviewed - Follow up/Referral Referrals: Zackery Reyna [Primary Care Provider] - Jackson Mir DO [Staff Physician] - - Patient Discharge Instructions Patient Printed Discharge Instructions: DI for Knee Pain Additional Instructions: Your x-ray was negative for acute fracture or dislocation. There are changes of arthritic changes noted in the knee. Please follow-up with orthopedic for further evaluation. Take Motrin as needed for pain. Return to the emergency room for worsening symptoms occurs - Post Discharge Activity
[2019-07-06] MEDS ORDERED: KETOROLAC TROMETHAMINE 60 MG/2 ML VIAL ONE (09:22)
== END 2019-07-06 10:00 | disposition home or self-care (01) ==
LOC: JERFT 08:44
PROC: 3E0233Z Introduction of Anti-inflammatory into Muscle, Percutaneous Approach (ICD-10-PCS; principal; 2019-07-06)
DX: M25.461 Effusion, right knee (principal); Z88.8 Allergy status to other drugs, medicaments and biological substances; Z88.1 Allergy status to other antibiotic agents; Z91.013 Allergy to seafood; Z87.891 Personal history of nicotine dependence; F41.8 Other specified anxiety disorders; K80.80 Other cholelithiasis without obstruction; J45.909 Unspecified asthma, uncomplicated
CPT/HCPCS: 73562-TC-RT-FY; 96372; 99282-25

== ENCOUNTER 2019-08-29 06:03 | Day surgery (SDC) | payer OTHER ==
[2019-08-27 14:51] VITALS: BMI 32.3
[2019-08-29] MEDS ORDERED: SUCCINYLCHOLINE CHLORIDE 200 MG/10 ML SYRINGE ONE (07:29)
[2019-08-29] MEDS ORDERED: PROPOFOL 20 ML ONE ×2 (07:29)
[2019-08-29] MEDS ORDERED: MIDAZOLAM HCL 2 MG/2 ML SINGLE DOSE VIAL ONE (07:29)
[2019-08-29] MEDS ORDERED: LIDOCAINE HCL/PF 2% SDV 5ML VIAL ONE (07:31)
[2019-08-29] MEDS ORDERED: BUPIVACAINE HCL/PF 2.5 MG/ML - 30 ML VIAL IJ ONE (07:37)
--- NOTE | 2019-08-29 07:37 | HP ---
History & Physical Update - Physical Physical: No Change - Assessment Assessment: No Change - Plan Plan: No Change
[2019-08-29] MEDS ORDERED: EPINEPHrine 1:1,000 1 MG/1 ML - 30ML VIAL (INJECTION) ONE (07:46)
[2019-08-29] MEDS ORDERED: ONDANSETRON 4 MG/2 ML VIAL ONE ×2 (08:00→09:04)
[2019-08-29] MEDS ORDERED: KETOROLAC TROMETHAMINE 30 MG/1 ML VIAL ONE (08:00)
[2019-08-29] MEDS ORDERED: DEXAMETHASONE SOD PHOSPHATE 4 MG/1 ML VIAL ONE (08:00)
[2019-08-29] MEDS ORDERED: LIDOCAINE HCL 2% JELLY (5 ML/TUBE) ONE (08:00)
[2019-08-29] MEDS ORDERED: ceFAZolin SODIUM 1 GM VIAL ONE (08:00)
[2019-08-29] MEDS ORDERED: BUPIVACAINE HCL/PF 0.25% (2.5MG/ML) 10 ML VIAL IJ ONE (08:52)
--- NOTE | 2019-08-29 09:04 | OPR ---
DATE OF OPERATION: 08/29/2019 TITLE OF OPERATION: Right Medial partial meniscectomy, and synovectomy (limited), chondroplasty patella, chondroplasty medial femoral condyle and tibial plateau. PREOPERATIVE DIAGNOSIS: Right Medial meniscus tear, chondromalacia patella, medial femoral condyle, synovitis. POSTOPERATIVE DIAGNOSIS: Right Medial meniscus tear, chondromalacia patella, medial femoral condyle, tibial plateau, and synovitis SURGEON: Jackson Mir DO CANDY STARCH MOLD PRINTER: none ANESTHESIA: General anesthesia LMA SPECIMEN: Meniscus shavings COMPLICATIONS: none EBL: minimal INDICATIONS FOR SURGERY: Ms. Alves is a 43 year old female who presented in the preoperative setting with a chief complaint of right knee pain. Based on her mechanical symptoms, pre-injury level of activity, and after failure of conservative management, including activity modification, surgical treatment was discussed. The risks and benefits of surgery and anesthesia were discussed in detail including but not limited to continued swelling and pain, blood clot, bleeding, infection , scarring, damage to vessels and nerves, MCL tear, failure to obtain the desired result, failure to heal, failure to return to sport or work. Understanding the risks and benefits, Ms. Alves opted to proceed with surgical management. SURGEON'S NARRATIVE: After informed consent was obtained the patient was brought the operating room prepped draped in usual fashion sterile technique. Timeout was called. Site verification was performed and perioperative antibodies were administered. A standard anterolateral portal was made and the 4 mm 30 degree arthroscope was inserted into the knee joint without difficulty. This revealed significant patellofemoral chondromalacia on the lateral aspect of the patella. I estimate approximately 25 percent of the patella was affected. There were also synovitic fronds over the inferior and medial portions of the patella. Turning my attention the medial compartment, the patient had a radial, and intrasubstance tear of the body and posterior horn of the medial meniscus that reached the articular surface. I probed the meniscus root and it was intact. There was mild to moderate associated chondromalacia of the medial femoral condyle and tibial plateau, which was approximately 20 percent of the condyle, and 10 percent of the tibial plateau. I performed a partial medial meniscectomy removing the torn tissue with arthroscopic shaver and biter. I estimate that I removed approximately 30 percent of the meniscus. The remaining meniscus was intact after the resection from root to root. I then performed a chondroplasty of the medial femoral condyle and tibial plateau to stable margins. The ACL was examined and was intact. Turning my attention the lateral compartment the patient, the lateral meniscus was probed, and there was no tear of the lateral meniscus. There was also no significant associated chondromalacia of the lateral compartment. The meniscus was intact from root to root. I then went into the patellofemoral compartment to complete a chondroplasty patella, and limited synovectomy of the patellofemoral joint. This completed the procedure. I closed incisions with 3-0 nylon, and injected 12 cc's of .25% marcaine into each portal. Xeroform, sterile 4x4's, an ABD, and an CLAYTON bandage was placed. The patient tolerated procedure well and arrived recovery in stable condition. Patient will follow up with me in the office within 10-14 days for suture removal. She will start ASA 325 QD starting tomorrow for 30 days. She will be WBAT with crutches, and start Physical therapy within 7 days. Jackson Mir,
[2019-08-29] MEDS ORDERED: ONDANSETRON 4 MG/2 ML VIAL IVPUSH PRN (09:07)
[2019-08-29] MEDS ORDERED: HYDROmorphone HCL 2 MG TABLET PO ONE (09:09)
[2019-08-29] MEDS ORDERED: PROMETHAZINE HCL 25 MG/1 ML VIAL ONE (09:29)
[2019-08-29] MEDS: PROMETHAZINE HCL 25 MG/1 ML VIAL IVPUSH PRN ×2 (09:30→09:53)
[2019-08-29 10:42] VITALS: TEMP 98
[2019-08-29 10:46] VITALS: BP 116/66; PULSE 66
--- NOTE | 2019-09-01 15:42 | PATH ---
Surgical Pathology Report Patient Name: ZAIRE ANTONIO Med. Rec. #: [id number] /Age/Gender: 1975 (Age: 43) / F Account: [id number] [facility] Taken: 08/29/2019 Received: 08/29/2019 Reported: 09/01/2019 Physicians: Jackson Mir MD Specimen(s) Received SHAVINGS RIGHT KNEE Clinical History Right knee medial meniscus tear Final Diagnosis KNEE SHAVINGS, RIGHT, ARTHROSCOPY, PARTIAL MEDIAL MENISCECTOMY, MEDIAL CHONDROPLASTY: FRAGMENTS OF CARTILAGE, DENSE FIBROCONNECTIVE TISSUE, AND ADIPOSE TISSUE. FIBROSYNOVIAL TISSUE WITH PROMINENT LYMPHOPLASMACYTIC (CHRONIC) INFLAMMATORY INFILTRATE AND REACTIVE SYNOVIAL HYPERPLASIA. Comment: Although these findings are non-specific, dense lymphoplasmacytic infiltrate involving synovium with reactive synovial hyperplasia may be seen in association with rheumatoid arthritis. Correlation with clinical/radiologic and serologic findings is suggested. Electronically Signed Destiny Trejo M.D. Gross Description Received in formalin, labeled "right knee shavings," is a 4.5 x 4.0 x 0.3 cm. aggregate of pond-yellow soft tissue fragments. A c s s representative portion is submitted in one cassette. 08/29/201908/29/2019
== END 2019-08-29 11:45 | disposition home or self-care (01) ==
LOC: FASU 06:03
PROVIDERS: ATTEND Orthopaedic Surgery Sports Medicine
PROC: 0SBC4ZZ Excision of Right Knee Joint, Percutaneous Endoscopic Approach (ICD-10-PCS; 2019-08-29)
PROC: 0SBC4ZZ Excision of Right Knee Joint, Percutaneous Endoscopic Approach (ICD-10-PCS; principal; 2019-08-29 08:20)
DX: S83.241A Other tear of medial meniscus, current injury, right knee, initial encounter (principal); M65.861 Other synovitis and tenosynovitis, right lower leg; M22.41 Chondromalacia patellae, right knee; X58.XXXA Exposure to other specified factors, initial encounter; Y93.9 Activity, unspecified; Y92.9 Unspecified place or not applicable
CPT/HCPCS: 29881; G0289; 81025; 88304-TC; 94760

== ENCOUNTER 2020-12-24 12:27 | Emergency (ER) | payer OTHER ==
[2020-12-24 12:53] VITALS: BMI 24.9
[2020-12-24] MEDS ORDERED: SODIUM CHLORIDE 1,000 ML IV STA (13:38)
[2020-12-24] MEDS ORDERED: ONDANSETRON 4 MG/2 ML VIAL IVPUSH ONE (13:38)
[2020-12-24] MEDS ORDERED: FAMOTIDINE 20 MG/50 ML IVPB 20 MG/50 ML MG IVPB ONE ×2 (13:38→13:46)
[2020-12-24] MEDS ORDERED: MAG HYDROX/AL HYDROX/SIMETH -MYLANTA- ORAL SUSPENSION PO ONE (13:38)
[2020-12-24] MEDS ORDERED: ONDANSETRON 4 MG/2 ML VIAL ONE (13:45)
[2020-12-24] MEDS ORDERED: MAG HYDROX/AL HYDROX/SIMETH 30 ML UNIT-DOSE CUP ONE (13:45)
[2020-12-24 14:40] LABS: BASO % 1.4 % (0-2.0); EOS % 0.2 % (0-4.5); HEMATOCRIT 41.2 % (32.4-45.2); HEMOGLOBIN 14.1 GM/dL (10.7-15.3); LYMPH % 31.3 % (8-40); MCHC 34.1 g/dl (32.0-36.0); MEAN CELL VOLUME 85.1 fl (80-96); MEAN PLT VOLUME 8.8 fl (7.5-11.1); MONO % 6.1 % (3.8-10.2); PLATELET COUNT 405 K/MM3 (134-434); RBC 4.84 M/mm3 (3.60-5.2); RDW 13.4 % (11.6-15.6); WHITE BLOOD COUNT 14.1 K/mm3 (4.0-10.0)
[2020-12-24 15:02] LABS: ALBUMIN 3.8 g/dl (3.4-5.0); BLOOD UREA NITROGEN 9.8 mg/dL (7-18); CALCIUM 9.1 mg/dL (8.5-10.1)
[2020-12-24 15:05] LABS: CREATININE 0.5 mg/dL (0.55-1.3)
[2020-12-24 15:07] LABS: BILIRUBIN,TOTAL 0.4 mg/dL (0.2-1); TOT PROT 7.7 g/dl (6.4-8.2)
[2020-12-24 15:45] LABS: URINE APPEARANCE CLOUDY; URINE BILIRUBIN NEGATIVE (NEGATIVE); URINE COLOR YELLOW; URINE GLUCOSE (UA) NEGATIVE (NEGATIVE); URINE KETONE TRACE (NEGATIVE); URINE LEUK ESTERASE NEGATIVE (NEGATIVE); URINE NITRITE NEGATIVE (NEGATIVE); URINE PROTEIN NEGATIVE (NEGATIVE)
[2020-12-24 15:47] LABS: HCG,QUALITATIVE URINE Negative
[2020-12-24 15:55] VITALS: BP 127/66; PULSE 65; TEMP 98
== END 2020-12-24 16:23 | disposition home or self-care (01) ==
LOC: JER 12:27
PROC: 3E033GC Introduction of Other Therapeutic Substance into Peripheral Vein, Percutaneous Approach (ICD-10-PCS; principal; 2020-12-24)
PROC: 3E033GC Introduction of Other Therapeutic Substance into Peripheral Vein, Percutaneous Approach (ICD-10-PCS; 2020-12-24)
PROC: 3E0337Z Introduction of Electrolytic and Water Balance Substance into Peripheral Vein, Percutaneous Approach (ICD-10-PCS; 2020-12-24)
DX: R11.2 Nausea with vomiting, unspecified (principal)
CPT/HCPCS: 36415; 80053; 81003; 83690; 84703; 85025; 87086; 99284-25

== ENCOUNTER 2022-02-21 20:32 | Emergency (ER) | payer OTHER ==
[2022-02-21 20:38] VITALS: BP 129/81; PULSE 81; TEMP 98.6; BMI 32.9
[2022-02-21] MEDS ORDERED: KETOROLAC TROMETHAMINE 30 MG/1 ML VIAL ONE (21:29)
[2022-02-21] MEDS ORDERED: ACETAMINOPHEN 500 MG TABLET (FP) ONE (21:30)
[2022-02-21] MEDS ORDERED: KETOROLAC TROMETHAMINE 30 MG/1 ML VIAL IM ONE (21:35)
[2022-02-21] MEDS ORDERED: ACETAMINOPHEN 500 MG TABLET (FP) PO ONE (21:35)
== END 2022-02-21 21:44 | disposition home or self-care (01) ==
LOC: JERFT 20:32
PROC: 3E0233Z Introduction of Anti-inflammatory into Muscle, Percutaneous Approach (ICD-10-PCS; principal; 2022-02-21)
DX: M25.521 Pain in right elbow (principal); M25.522 Pain in left elbow
CPT/HCPCS: 84703; 99284-25

== ENCOUNTER 2022-05-31 11:28 | Emergency (ER) | payer OTHER ==
[2022-05-31 12:13] VITALS: BP 101/66; PULSE 78; RESP 19; TEMP 98.1; BMI 25.7
[2022-05-31] MEDS ORDERED: LIDOCAINE 5% TOPICAL PATCH TP ONE (13:12)
[2022-05-31] MEDS ORDERED: KETOROLAC TROMETHAMINE 30 MG/1 ML VIAL IM ONE (13:12)
[2022-05-31] MEDS ORDERED: METHOCARBAMOL 500 MG TABLET PO ONE (13:12)
[2022-05-31] MEDS ORDERED: METHOCARBAMOL 500 MG TABLET ONE (13:15)
[2022-05-31] MEDS ORDERED: LIDOCAINE 5% TOPICAL PATCH ONE (13:15)
[2022-05-31] MEDS ORDERED: KETOROLAC TROMETHAMINE 30 MG/1 ML VIAL ONE (13:15)
[2022-05-31] MEDS ORDERED: LIDOCAINE PATCH REMOVAL MC SCH (22:00)
== END 2022-05-31 15:43 | disposition home or self-care (01) ==
LOC: JERFT 11:28
PROC: 3E023GC Introduction of Other Therapeutic Substance into Muscle, Percutaneous Approach (ICD-10-PCS; principal; 2022-05-31)
DX: S20.212A Contusion of left front wall of thorax, initial encounter (principal); S49.92XA Unspecified injury of left shoulder and upper arm, initial encounter; W18.2XXA Fall in (into) shower or empty bathtub, initial encounter
CPT/HCPCS: 71101-TC-LT-FY; 73030-TC-LT-FY; 99284-25

== ENCOUNTER 2022-08-09 18:30 | Emergency (ER) | payer OTHER ==
[2022-08-09 18:37] VITALS: BP 124/64; PULSE 80; RESP 20; TEMP 98.3; BMI 24.7
[2022-08-09] MEDS ORDERED: ALBUTEROL SO4 HFA INHALER IH ONE ×2 (19:59→20:00)
[2022-08-09] MEDS ORDERED: predniSONE 20 MG TABLET (UD) PO ONE (20:00)
[2022-08-09] MEDS ORDERED: predniSONE 20 MG TABLET (UD) ONE (20:00)
== END 2022-08-09 20:04 | disposition home or self-care (01) ==
LOC: JER 18:30 → JERFT 18:30
PROC: 3E0F7GC Introduction of Other Therapeutic Substance into Respiratory Tract, Via Natural or Artificial Opening (ICD-10-PCS; principal; 2022-08-09)
DX: J45.20 Mild intermittent asthma, uncomplicated (principal)
CPT/HCPCS: 99283-25

== ENCOUNTER 2024-10-23 07:12 | Day surgery (SDC) | payer OTHER ==
[2024-10-17 14:18] VITALS: BMI 33.1
[2024-10-23] MEDS ORDERED: MIDAZOLAM HCL 2 MG/2 ML SINGLE DOSE VIAL ONE (07:19)
[2024-10-23] MEDS ORDERED: PROPOFOL 20 ML ONE ×2 (07:19→09:15)
[2024-10-23] MEDS ORDERED: LIDOCAINE HCL/PF 2% SDV 5ML VIAL ONE (07:19)
[2024-10-23] MEDS ORDERED: LACTATED RINGERS SOLUTION 1,000 ML IV SCH (07:45)
[2024-10-23] MEDS ORDERED: BUPIVACAINE HCL/PF 2.5 MG/ML - 30 ML VIAL IJ ONE (07:58)
[2024-10-23] MEDS ORDERED: ONDANSETRON 4 MG/2 ML VIAL ONE ×2 (09:19→10:25)
[2024-10-23] MEDS ORDERED: DEXAMETHASONE SOD PHOSPHATE 4 MG/1 ML VIAL ONE (09:19)
[2024-10-23] MEDS ORDERED: ceFAZolin SODIUM 1 GM VIAL ONE (09:19)
[2024-10-23] MEDS ORDERED: KETOROLAC TROMETHAMINE 30 MG/1 ML VIAL ONE (09:42)
[2024-10-23] MEDS: BUPIVACAINE HCL/PF 0.25% (2.5MG/ML) 10 ML VIAL IJ ONE (10:02)
[2024-10-23] MEDS ORDERED: FENTANYL CITRATE/PF 50 MCG/ML VIAL ONE ×2 (10:25→10:39)
[2024-10-23] MEDS: ONDANSETRON 4 MG/2 ML VIAL IVPUSH PRN (10:30)
[2024-10-23 11:28] VITALS: RESP 18; TEMP 97.8
[2024-10-23] MEDS: PROMETHAZINE HCL 25 MG/1 ML VIAL IVPB PRN (11:45)
[2024-10-23] MEDS ORDERED: traMADol HCL 50 MG TABLET ONE (12:14)
[2024-10-23] MEDS: traMADol HCL 50 MG TABLET PO ONE (12:15)
[2024-10-23 13:22] VITALS: BP 112/64; PULSE 60
== END 2024-10-23 13:25 | disposition home or self-care (01) ==
LOC: FASU 07:12
PROVIDERS: ATTEND Orthopaedic Surgery Sports Medicine
PROC: 0SBD4ZZ Excision of Left Knee Joint, Percutaneous Endoscopic Approach (ICD-10-PCS; principal; 2024-10-23 09:38)
DX: S83.242A Other tear of medial meniscus, current injury, left knee, initial encounter (principal); M65.962 Unspecified synovitis and tenosynovitis, left lower leg; X58.XXXA Exposure to other specified factors, initial encounter; Y93.9 Activity, unspecified; Y92.9 Unspecified place or not applicable
CPT/HCPCS: 81025; 94760